=== PATIENT | male | born 1960 | race Caucasian/White ===

== ENCOUNTER 2020-10-30 06:54 | Outpatient (NON) | payer OTHER, SELFPAY ==
[2020-10-30 23:37] LABS: SARS-CoV-2 RNA PCR Positive
== END 2020-10-30 06:55 ==
PROVIDERS: PCP Family Medicine Adolescent Medicine; Visit Provider Family Medicine Adolescent Medicine
DX: U07.1 COVID-19 (principal)
CPT/HCPCS: 87635; C9803; U0003

== ENCOUNTER 2025-11-02 07:22 | Outpatient (CLI) | payer MEDICARE, SELFPAY ==
--- OUTSIDE RECORDS SUMMARY | 2025-11-02 07:26 | XMS_ITS | Encounter Summary ---
Author Organization [facility] Facility Care Team Providers Care Reactor Service Operator Name Role Phone Wilfredo Moreno MD Primary Care Prov ider David Kenney MD Unavailable [phone] Blake Brooks MD PhD Unavailable [phone] Brittany Escobar MD Unavailable [phone] Costa Barba MD Unavailable [phone] Brittany Escobar MD Unavailable [phone] Cody Devi MD Unavailable [phone] Encounter Details Date Type Department Care Team (Latest Contact Info) Description 08/31/2006 Orders Only [facility] CLINCONV Provider, MD Mary Ann [address] [place] [address] Social History Tobacco Use Types Packs/Day Years Used Date Smoking Tobacco: Never Assessed Sex and Gender Information Value Date Recorded Sex Assigned at Not on file Legal Sex Male 9:17 PM BUTTON TACKER Gender Identity Not on file Sexual Orientation Not on file documented as of this encounter Plan of Treatment Not on file documented as of this encounter Procedures Procedure Name Priority Date/Time Associated Diagnosis Comments CARDIOLOGY REPORT 12/10/2016 12: 00 AM BUTTON TACKER documented in this encounter Results * CARDIOLOGY REPORT (12/10/2016 12:00 AM BUTTON TACKER) Anatomical Region Laterality Modality Other Narrative 12/10/2016 12:00 AM BUTTON TACKER Ordered by an unspecified provider. us Historical Provider CV CARDIAC SERVICES MARIANA AGARWAL Final Result documented in this encounter Visit Diagnoses Not on filedocumented in this encounter Care Teams Reactor Service Operator Relationship Specialty Start Date End Date Wilfredo Moreno MD PCP - General 01/06/18 David Kenney MD Medical Oncologist/Proposal Engineer Hematology and Oncology 07/06/18 06/10/21 Blake Brooks MD PhD [facility] [facility] [address] [place], [place] [address] Medical Oncologist/Proposal Engineer Medical Oncology 01/15/21 Brittany Escobar MD [address] [place] [address] 180 [place], [place] [address] Radiation Oncologist Radiation Oncology 07/17/21 Costa Garcia MD 3 [facility] [address] [place], [place] [address] Surgeon Neurosurgery 07/17/21 Brittany Escobar MD [address] [place] [address] 160 [place], [place] [address] Radiation Oncologist Radiation Oncology 07/06/24 Cody Devi MD [facility] [facility] [address] [place], [place] [address] Consulting Physician General Surgery 06/13/25 documented as of this encounter
--- OUTSIDE RECORDS SUMMARY | 2025-11-02 07:26 | XMS_ITS | Encounter Summary ---
Author Organization [facility] Facility Care Team Providers Care Systems Analyst Name Role Phone Wilfredo Moreno MD Primary Care Prov ider David Kenney MD Unavailable [phone] Blake Brooks MD PhD Unavailable [phone] Brittany Escobar MD Unavailable [phone] Costa Barba MD Unavailable [phone] Brittany Escobar MD Unavailable [phone] Cody Devi MD Unavailable [phone] Encounter Details Date Type Department Care Team (Latest Contact Info) Description 02/16/2018 Orders Only [facility]G CLINCONV Provider, MD Mary Ann [address] [place] [address] Social History Tobacco Use Types Packs/Day Years Used Date Smoking Tobacco: Every Day Sex and Gender Information Value Date Recorded Sex Assigned at Not on file Legal 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 us Historical Provider Final Res ult documented in this encounter Visit Diagnoses Not on filedocumented in this encounter Care Teams Systems Analyst Relationship Specialty Start Date End Date Wilfredo Moreno MD PCP - General 01/06/18 David Kenney MD Medical Oncologist/Senior Operations Analyst Hematology and Oncology 07/06/18 06/10/21 Blake Brooks MD PhD [facility]8 [facility] [address] [place], [place] [address] Medical Oncologist/Senior Operations Analyst Medical Oncology 01/15/21 Brittany Escobar MD [address] [place] [address] 180 [place], [place] [address] Radiation Oncologist Radiation Oncology 07/17/21 Costa Garcia MD 3 [facility] [address] [place], [place] [address] Surgeon Neurosurgery 07/17/21 Brittany Escobar MD [facility]8 [facility] 160 [place], [place] [address] Radiation Oncologist Radiation Oncology 07/06/24 Cody Devi MD [facility]4 [facility] 330 [place], [place] [address] Consulting Physician General Surgery 06/13/25 documented as of this encounter
--- OUTSIDE RECORDS SUMMARY | 2025-11-02 07:26 | XMS_ITS | Encounter Summary ---
Author Organization [facility] Facility Care Team Providers Care Bio Medical Technician Name Role Phone Wilfredo Moreno MD Primary Care Prov ider David Kenney MD Unavailable [phone] Blake Brooks MD PhD Unavailable [phone] Brittany Escobar MD Unavailable [phone] Costa Barba MD Unavailable [phone] Brittany Escobar MD Unavailable [phone] Cody Devi MD Unavailable [phone] Encounter Details Date Type Department Care Team (Latest Contact Info) Description 01/10/2009 Orders Only [facility]G CLINCONV Provider, MD Mary Ann [address] [place] [address] Social History Tobacco Use Types Packs/Day Years Used Date Smoking Tobacco: Never Assessed Sex and Gender Information Value Date Recorded Sex Assigned at Not on file Legal Sex Male 9:17 PM ASSISTANT DIRECTOR OF PLANT OPERATIONS Gender Identity Not on file Sexual Orientation Not on file documented as of this encounter Plan of Treatment Not on file documented as of this encounter Procedures Procedure Name Priority Date/Time Associated Diagnosis Comments CARDIOLOGY REPORT 12/10/2016 12: 00 AM ASSISTANT DIRECTOR OF PLANT OPERATIONS documented in this encounter Results * CARDIOLOGY REPORT (12/10/2016 12:00 AM ASSISTANT DIRECTOR OF PLANT OPERATIONS) Anatomical Region Laterality Modality Other Narrative 12/10/2016 12:00 AM ASSISTANT DIRECTOR OF PLANT OPERATIONS Ordered by an unspecified provider. us Historical Provider CV CARDIAC SERVICES MARIANA AGARWAL Final Result documented in this encounter Visit Diagnoses Not on filedocumented in this encounter Care Teams Bio Medical Technician Relationship Specialty Start Date End Date Wilfredo Moreno MD PCP - General 01/06/18 David Kenney MD Medical Oncologist/Hospital Nurse Hematology and Oncology 07/06/18 06/10/21 Blake Brooks MD PhD [facility]8 [facility] [address] [place], [place] [address] Medical Oncologist/Hospital Nurse Medical Oncology 01/15/21 Brittany Escobar MD [address] [place] [address] 180 [place], [place] [address] Radiation Oncologist Radiation Oncology 07/17/21 Costa Garcia MD 3 [facility] 5000 [place], [place] [address] Surgeon Neurosurgery 07/17/21 Brittany Escobar MD [address] [place] [address] 160 [place], [place] [address] Radiation Oncologist Radiation Oncology 07/06/24 Cody Devi MD [facility]4 [facility] 330 [place], [place] [address] Consulting Physician General Surgery 06/13/25 documented as of this encounter
--- OUTSIDE RECORDS SUMMARY | 2025-11-02 07:26 | XMS_ITS | Encounter Summary ---
Author Organization [facility] Facility Care Team Providers Care Yoghurt Maker Name Role Phone Wilfredo Moreno MD Primary Care Prov ider David Kenney MD Unavailable [phone] Blake Brooks MD PhD Unavailable [phone] Brittany Escobar MD Unavailable [phone] Costa Barba MD Unavailable [phone] Brittany Escobar MD Unavailable [phone] Cody Devi MD Unavailable [phone] Encounter Details Date Type Department Care Team (Latest Contact Info) Description 06/12/2015 Orders Only [facility]G CLINCONV Provider, MD Mary Ann [address] [place] [address] Social History Tobacco Use Types Packs/Day Years Used Date Smoking Tobacco: Never Assessed Sex and Gender Information Value Date Recorded Sex Assigned at Not on file Legal Sex Male 9:17 PM REAL ESTATE LEGAL SECRETARY Gender Identity Not on file Sexual Orientation Not on file documented as of this encounter Plan of Treatment Not on file documented as of this encounter Procedures Procedure Name Priority Date/Time Associated Diagnosis Comments CARDIOLOGY REPORT 12/10/2016 12: 00 AM REAL ESTATE LEGAL SECRETARY documented in this encounter Results * CARDIOLOGY REPORT (12/10/2016 12:00 AM REAL ESTATE LEGAL SECRETARY) Anatomical Region Laterality Modality Other Narrative 12/10/2016 12:00 AM REAL ESTATE LEGAL SECRETARY Ordered by an unspecified provider. us Historical Provider CV CARDIAC SERVICES MARIANA AGARWAL Final Result documented in this encounter Visit Diagnoses Not on filedocumented in this encounter Care Teams Yoghurt Maker Relationship Specialty Start Date End Date Wilfredo Moreno MD PCP - General 01/06/18 David Kenney MD Medical Oncologist/Visitor Services Technician Hematology and Oncology 07/06/18 06/10/21 Blake Brooks MD PhD [facility] [place], [place] [address] Medical Oncologist/Visitor Services Technician Medical Oncology 01/15/21 Brittany Escobar MD [address] [place] [address] 180 [place], [place] [address] Radiation Oncologist Radiation Oncology 07/17/21 Costa Garcia MD 3 [facility] [address] [place], [place] [address] Surgeon Neurosurgery 07/17/21 Brittany Escobar MD [address] [place] [address] 160 [place], [place] [address] Radiation Oncologist Radiation Oncology 07/06/24 Cody Devi MD [facility] [place], [place] [address] Consulting Physician General Surgery 06/13/25 documented as of this encounter
--- OUTSIDE RECORDS SUMMARY | 2025-11-02 07:26 | XMS_ITS | Clinical Summary ---
Author Organization [facility] [employer] Address [address] [place] [address] Care Team Providers Care Life Consultant Name Role Phone Wilfredo Moreno MD Primary Care Provider + Elizabet Herr RN Unavailable [phone] Source Comments [facility],non-owned Affiliates and Associated Physician Practices is amultiple site organization consisting of ambulatory clinics and hospital sitesin [place], [place], [place] and [place]. This disclosure is being madepursuant to the Care Everywhere program and may not contain all information available regarding this patient. Last updated 18.[facility] [employer] Allergies No known active allergies Medications * Be aware that medications may not be up to date on this document. Alwaysverify current medications with the patient. BABY ASPIRIN PO Take 81 mg by mouth once daily Active fenofibrate (LOFIBRA) 160 MG tablet Take 160 mg by mouth once daily Take with largest meal of the day. Active metFORMIN (GLUCOPHAGE) 500 MG tablet Take 500 mg by mouth once daily Active levETIRAcetam (KEPPRA) 500 MG tablet Take 1 tablet by mouth 2 times daily 60 tablet 02/13/2018 Active Active Problems Problem Noted Date Diagnosed Date Uncontrolled diabetes mellitus type 2 without co mplications 02/13/2018 Dizziness 02/11/2018 Brain edema 02/11/2018 Metastasis to brain 02/11/2018 Mass of upper lobe of right lung 02/11/2018 Family History Medical History Relation Name Comments Cancer - Renal Brother Cancer - Prostate Father Cancer - Breast Mother Diabetes - Type 2 Mother Alzheimer's Disease Paternal Grandfather Alzheimer's Disease Paternal Grandmother CVA Sister Lupus Sister Relation Name Status Comments Brother Father Mother Paternal Grandfather Paternal Grandmother Sister Social History Tobacco Use Types Packs/Day Years Used Date Smoking Tobacco: Every Day Cigarettes 1.5 40 Smokeless Tobacco: Never Tobacco Cessation:Ready to Q uit: No; Counseling Given: No Alcohol Use Standard Drinks/Week Comments No 0 (1 standard drink = 0.6 oz pur e alcohol) Sex and Gender Information Value Date Recorded Sex Assigned at Not on file Legal Sex Male 6:32 PM CDT Gender Identity Not on file Sexual Orientation Not on file Last Filed Vital Signs Vital Sign Reading Time Taken Comments Blood Pressure 114/68 02/13/2018 11:34 AM CDT Pulse 74 02/13/2018 11:34 AM CDT Temperature 36.6 C (97.9 F) 02/13/2018 11:34 AM CDT Respiratory Rate 16 02/13/2018 11:34 AM CDT Oxygen Saturation 95% 02/13/2018 11:34 AM CDT Inhaled Oxygen Concentration - - Weight 87.1 kg (192 lb) 02/12/2018 10:29 AM CDT Height 180.3 cm (5' 11) 02/12/2018 10:29 AM CDT Body Mass Index 26.78 02/12/2018 10:29 AM CDT Plan of Treatment Health Maintenance Due Date Last Done Comments COLOGUARD (AGES 45-75) - COL ON CA SCREENING 1960 COLON MONITORING 1960 COLONOSCOPY - COLON CA SCREENING 1960 CT COLONOGRAPHY - COLON CA SCREENING 1960 Colorectal Cancer Screening 1960 FIT - COLON CA SCREENING 1960 FLEX SIG - COLON CA SCREENING 1960 LIPID TESTING 1960 HIV SCREENING 1975 HEPATITIS C SCREENING 01/22/1978 DTAP/TDAP/TD VACCINES (1 - Tdap) 1979 LUNG CANCER SCREENING 2010 PNEUMOCOCCAL VACCINE 50+ (1 of 1 - PCV) 2010 ZOSTER VACCINE (1 of 2) 2010 DEPRESSION SCREENING 11/30/2024 AAA SCREENING 2025 COVID-19 VACCINE ( - 2024-2 6 season) 2025 INFLUENZA VACCINE (#1) 2025 Respiratory Syncytial Virus (RSV) Vaccine Pt: or over 60 yrs (1 - 1-dose 75+ series) 2035 HEPATITIS B VACCINE Aged Out No longe r eligible based on patient's age to complete this topic HIB VACCINE Aged Out No longer eligi ble based on patient's age to complete this topic HPV VACCINE Aged Out No longer eligi ble based on patient's age to complete this topic MENINGOCOCCAL (Group B) VACC INE SHARED DECISION-MAKING Aged Out No longer eligibl e based on patient's age to complete this topic MENINGOCOCCAL GROUPS A/C/Y/W VACCINE Aged Out No longer eligible b ased on patient's age to complete [place] [id number] [place] [id number] [employer] Advance Directives * Full Code (Latest Code Status on File) Date Activated Date Inactivated Comments 02/11/2018 10:45 PM 02/13/2018 3:55 PM Care Teams Life Consultant Relationship Specialty Start Date End Date Wilfredo Moreno MD [address] [address] PCP - General Family Medicine 02/11/18 Elizabet Herr, RN Nurse Informaticist 02/12/18
--- OUTSIDE RECORDS SUMMARY | 2025-11-02 07:26 | XMS_ITS | Encounter Summary ---
Author Organization [facility] Facility Care Team Providers Care Shotweld Operator Name Role Phone Wilfredo Moreno MD Primary Care Prov ider David Kenney MD Unavailable [phone] Blake Brooks MD PhD Unavailable [phone] Brittany Escobar MD Unavailable [phone] Costa Barba MD Unavailable [phone] Brittany Escobar MD Unavailable [phone] Cody Devi MD Unavailable [phone] Encounter Details Date Type Department Care Team (Latest Contact Info) Description 09/14/2014 Orders Only MMG CLINCONV Provider, MD Mary Ann [address] [place] [address] Social History Tobacco Use Types Packs/Day Years Used Date Smoking Tobacco: Never Assessed Sex and Gender Information Value Date Recorded Sex Assigned at Not on file Legal Sex Male 9:17 PM BULK RECEIVER Gender Identity Not on file Sexual Orientation Not on file documented as of this encounter Plan of Treatment Not on file documented as of this encounter Procedures Procedure Name Priority Date/Time Associated Diagnosis Comments CARDIOLOGY REPORT 12/10/2016 12: 00 AM BULK RECEIVER documented in this encounter Results * CARDIOLOGY REPORT (12/10/2016 12:00 AM BULK RECEIVER) Anatomical Region Laterality Modality Other Narrative 12/10/2016 12:00 AM BULK RECEIVER Ordered by an unspecified provider. us Historical Provider CV CARDIAC SERVICES MARIANA AGARWAL Final Result documented in this encounter Visit Diagnoses Not on filedocumented in this encounter Care Teams Shotweld Operator Relationship Specialty Start Date End Date Wilfredo Moreno MD PCP - General 01/06/18 David Kenney MD Medical Oncologist/Bevel Polisher Hematology and Oncology 07/06/18 06/10/21 Blake Brooks MD PhD [facility]8 [facility] 180 [place], [place] [address] Medical Oncologist/Bevel Polisher Medical Oncology 01/15/21 Brittany Escobar MD [address] [place] [address] 180 [place], [place] [address] Radiation Oncologist Radiation Oncology 07/17/21 Costa Garcia MD 3 [facility] [address] [place], [place] [address] Surgeon Neurosurgery 07/17/21 Brittany Escobar MD [address] [place] [address] 160 [place], [place] [address] Radiation Oncologist Radiation Oncology 07/06/24 Cody Devi MD [facility]4 [facility] 330 [place], [place] [address] Consulting Physician General Surgery 06/13/25 documented as of this encounter
--- OUTSIDE RECORDS SUMMARY | 2025-11-02 07:26 | XMS_ITS | Encounter Summary ---
Author Organization [facility] Facility Care Team Providers Care Benzene Washer Operator Name Role Phone Wilfredo Moreno MD Primary Care Prov ider David Kenney MD Unavailable [phone] Blake Brooks MD PhD Unavailable [phone] Brittany Escobar MD Unavailable [phone] Costa Barba MD Unavailable [phone] Brittany Escobar MD Unavailable [phone] Cody Devi MD Unavailable [phone] Encounter Details Date Type Department Care Team (Latest Contact Info) Description 06/08/2015 Orders Only MMG CLINCONV Provider, MD Mary Ann [address] [place] [address] Social History Tobacco Use Types Packs/Day Years Used Date Smoking Tobacco: Never Assessed Sex and Gender Information Value Date Recorded Sex Assigned at Not on file Legal Sex Male 9:17 PM ACTIVITIES DIRECTOR Gender Identity Not on file Sexual Orientation Not on file documented as of this encounter Plan of Treatment Not on file documented as of this encounter Procedures Procedure Name Priority Date/Time Associated Diagnosis Comments SCAN - LABS 12/10/2016 12:00 AM ACTIVITIES DIRECTOR documented in this encounter Results * SCAN - LABS (12/10/2016 12:00 AM ACTIVITIES DIRECTOR) Narrative 12/10/2016 12:00 AM ACTIVITIES DIRECTOR Ordered by an unspecified provider. us Historical Provider Final Res ult documented in this encounter Visit Diagnoses Not on filedocumented in this encounter Care Teams Benzene Washer Operator Relationship Specialty Start Date End Date Wilfredo Moreno MD PCP - General 01/06/18 David Kenney MD Medical Oncologist/Afternoon Babysitter Hematology and Oncology 07/06/18 06/10/21 Blake Brooks MD PhD [facility]8 [facility] 180 [place], [place] [address] Medical Oncologist/Afternoon Babysitter Medical Oncology 01/15/21 Brittany Escobar MD [address] [place] [address] 180 [place], [place] [address] Radiation Oncologist Radiation Oncology 07/17/21 Costa Garcia MD 3 [facility] 5000 [place], [place] [address] Surgeon Neurosurgery 07/17/21 Brittany Escobar MD [facility]8 [facility] 160 [place], [place] [address] Radiation Oncologist Radiation Oncology 07/06/24 Cody Devi MD [facility]4 [facility] 330 [place], [place] [address] Consulting Physician General Surgery 06/13/25 documented as of this encounter
--- OUTSIDE RECORDS SUMMARY | 2025-11-02 07:27 | XMS_ITS | Clinical Summary ---
Author Organization [facility] Address [address] [place] [address] Phone Care Team Providers Care Watch Mechanic Name Role Phone Wilfredo Moreno MD Primary Care Prov ider Blake Brooks MD PhD Unavailable [phone] Costa Barba MD Unavailable [phone] Brittany Escobar MD Unavailable [phone] Cody Devi MD Unavailable [phone] Allergies No known active allergies Medications fenofibrate (TRIGLIDE) 160 mg tablet 12/14/2017Fenofibrate, po solid 160 mg TabletPOdailyCurrent Medication 12/14/19 18 Active metFORMIN (GLUCOPHAGE) 500 mg tablet 2 (two) times a day 0 15 Active calcium carbonate/vit cutler D3 (CALCIUM 500 + D, D3, ORAL) Take by mouth Active Trulicity 0.75 mg/0.5 mL pen injector INJECT 1 SYRINGE SUBCUTANEOUSLY ONCE A WEEK 04/05/20 24 Active LORazepam (ATIVAN) 1 mg tablet Take by mouth 2 (two) times a day as needed 02/28/20 24 Active pioglitazone (ACTOS) 15 mg tablet Take 1 tablet (15 mg total) by mouth daily 10/28/20 24 Active escitalopram (LEXAPRO) 10 mg tablet Take 1 tablet (10 mg total) by mouth daily as needed Active Active Problems Problem Noted Date Diagnosed Date Personal history of radiation therapy 07/17/2021 Encounter for management of implanted device 09/2019 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 12/08/2018 Hypothyroidism due to medication 09/06/2018 At risk for side effect of medication 09/06/2018 Adenocarcinoma of lung 05/24/2018 Non-small cell lung cancer (NSCLC) 05/10/2018 Cancer Staging:Clinical stage from 02/23/2018: cT3, cN2, cM1 - Signed by David Kenney MD on 05/10/2018 Uncontrolled diabetes mellitus type 2 without co mplications 02/13/2018 Metastasis to brain 02/11/2018 Mass of upper lobe of right lung 02/11/2018 Carotid artery disease 12/10/2016 Diabetes 12/10/2016 History of supraventricular tachycardia 12/10/19 17 Encounter for surgical after care following surgery on the circulatory system 02/22/2016 Aortoiliac occlusive disease 01/01/2016 Peripheral arterial occlusive disease 12/17/2015 Atherosclerotic occlusive disease 08/21/2015 Peripheral vascular disease 08/17/2015 Tobacco use disorder 08/12/2015 Polycythemia 09/19/2014 Immunizations Immunization Administration Dates Next Due Influenza, Quadrivalent, Delia l Culture-based MDCK, Preservative Free, Antibiotic Free, Intramuscular 09/16/2022,09/24/2021,09/25/2020,09/05,10/05/2018 Pfizer SARS-CoV-2 Monovalent Vaccination (12+ Yrs) PURPLE 12/02/2021,02/14/2021,01/24/2021 Surgical History Surgery Date Site/Laterality Comments CARDIAC SURGERY COLONOSCOPY LUNG BIOPSY TONSILLECTOMY AND ADENOIDECTOMY CATARACT EXTRACTION AORTA - BILATERAL FEMORAL ARTERY BYPASS GRAFT 01/23/2016 transabdominal aortobifemoral bypass grafting (18 x 8) Medical History Medical History Date Comments Lung cancer (HCC) Polycythemia Diabetes mellitus Hypothyroidism Atherosclerotic occlusive disease 08/21/2015 Peripheral vascular disease 08/17/2015 Aortoiliac occlusive disease (HCC) 01/01/2016 Metastasis to brain 02/11/2018 Mass of upper lobe of right lung 02/11/2018 Non-small cell lung cancer (NSCLC) (HCC) 018 Tobacco use disorder 08/12/2015 Carotid artery disease 12/10/2016 History of supraventricular tachycardia 12/10/19 17 Personal history of radiation therapy 07/17/2021 Family History Medical History Relation Name Comments Cancer Brother Family history of malignant neoplasm - (Added by TW Conv) Cancer Father Family history of malignant neoplasm - (Added by TW Conv) Cancer Mother Family history of malignant neoplasm - (Added by TW Conv) Skin cancer Sister Stroke Sister Relation Name Status Comments Brother (Age 54) 54 when di agnosed Father (Age 65) unkown age of diagnosis Mother (Age 71) 62 when di agnosed Sister Social History Tobacco Use Types Packs/Day Years Used Date Smoking Tobacco: Former Cigarettes 1.5 45 0 02/11/1973 - 02/11/2018 Smokeless Tobacco: Never Tobacco Cessation:Counseling Given: Not Answered Alcohol Use Standard Drinks/Week Comments Not Currently 0 (1 standard drink = 0.6 oz pur e alcohol) AUDIT-C Answer Date Recorded Q1: How often do you have a drink containing alcohol? Never 06/05/2025 Q2: How many drinks containi ng alcohol do you have on a typical day when you are drinking? Patient does not drink Q3: How often do you have si x or more drinks on one occasion? Never 06/05/2025 Personal Safety Answer Date Recorded Have you ever been in or are you currently in a harmful physical or emotional relationship or is someone making you feel afraid or unsafe? Denies 06/13/2025 Sex and Gender Information Value Date Recorded Sex Assigned at Not on file Legal Sex Male 9:17 PM EAR[employer] Gender Identity Not on file Sexual Orientation Not on file Last Filed Vital Signs Vital Sign Reading Time Taken Comments Blood Pressure 134/72 08/02/2025 12:45 PM CDT Pulse 101 08/02/2025 12:45 PM CDT Temperature 36.7 C (98 F) 06/13/2025 2:00 PM CDT Respiratory Rate 18 06/13/2025 2:30 PM CDT Oxygen Saturation 98% 08/02/2025 12:45 PM CDT Inhaled Oxygen Concentration - - Weight 86.6 kg (191 lb) 08/02/2025 12:45 PM CDT Height 180.3 cm (5' 11) 06/13/2025 8:40 AM CDT Body Mass Index 26.64 06/13/2025 8:40 AM CDT Plan of Treatment Health Maintenance Due Date Last Done Comments Colon Cancer Screening-Colonoscopy 1960 Depression Screening 1960 Dilated Eye Exam 1960 Foot Exam 1960 Hepatitis B Screening 1978 Zoster Vaccine (1 of 2) 12/15/2020 10/20/2020, 10/10 Pneumococcal vaccine 65+ (2 of 2 - PPSV23, PCV20, or PCV21) 12/18/2020 10/23/2020, 10/10/2020 Well Visit 65+ 2025 Covid-19 Vaccine (5 - 2024-2 6 season) 2025 11/18/2022, 12/02/2021, 02/14/2021, Additional history exists Influenza Vaccine (#1) 2025 2, 09/24/2021, 09/25/2020, Additional history exists Albumin Creatinine Ratio, Urine 08/02/2025 Lipid Panel 08/02/2025 08/02/2024, 12/31, 01/23/2016 Hemoglobin A1C 12/09/2025 06/08/2025, 09/0 01/2024, 02/11/2022, Additional history exists eGFR 06/08/2026 06/08/2025, 09/0 01/2024, 02/16/2024, Additional history exists Fall Risk Assessment 06/13/2026 06/13/2025 Prostate Cancer Screening-PSA 08/02/2026 08/02/2024, 02/11/2022 DTaP/Tdap/Td Vaccine (2 - Tdap) 10/10/2030 0 Hepatitis C Screening Completed 01/23/2016 Abdominal Aortic Aneurysm (A AA) Screen Completed 04/13/2025, 10/25/2024, 07/28/2024, Additional history exists Medical Devices Implanted Type Area Emergency Services Dispatcher Device Identifier Shelf Expiration Date Model / Serial / Lot Pac Left: Chest Procedures Procedure Name Priority Date/Time Associated Diagnosis Comments EGFR Routine 06/08/2025 8:36 AM CDT Pre-op testing HEMOGLOBIN A1C Routine 06/08/2025 8:36 AM CDT Preop testing Type 2 diabetes mellitus with other specified complication, unspecified whether fpc insulin use (HCC) CT CHEST ABDOMEN PELVIS W CONTRAST Schedule GAMA, Read GAMA (Appt Today, Awaiting Results) 04/13/2025 6:41 AM CDT Non-small cell cancer of right lung (HCC) Metastasis to brain (HCC) LIPID PANEL Routine 08/02/2024 12:52 PM CDT ALBUMIN CREATININE RATIO, URINE Routine 08/02/2024 12:52 PM CDT PSA SCREEN Routine 08/02/2024 12:52 PM CDT SERUM HEPATITIS C AB Routine 01/23/2016 8:43 AM EAR[employer]OVER from Last 3 Months or Most Recently Relevant to Health Maintenance Results * eGFR (06/08/2025 8:36 AM CDT) eGFR >90 >=60 mL/min/1. 73 m2 Comment: Interpretive Data Reference Interval Normal >/= 90 mL/min/1.73m2 Mildly decreased* 60 - 89 mL/min/1.73m2 Mildly to moderately decreased 45 - 59 mL/min/1.73m2 Moderately to severely decreased 30 - 44 mL/min/1.73m2 Severely decreased 15 - 29 mL/min/1.73m2 Kidney Failure < 15 mL/min/1.73m2 *Relative to young adult level Estimated glomerular filtration rate is determined by the 2020 CKD-EPI equation recommended by the National Kidney Foundation (A Unifying Approach to GFR Estimation: Recommendations of the NKF-ASK Task Force on Reassessing the Inclusion of Race in Diagnosing Kidney Disease, JASN 2020). The CKD-EPI equation should not be used for patients with unstable renal function and has not been validated in children and those over 70. Current interpretive data was last reviewed 2021. Testing performed by: [facility], [address] [place] [address], [place]., [address] Blood 06/08/2025 8:36 AM CDT 06/08/2025 8:46 AM CDT Mode Batista MD LAB BLOOD ORDERABL ES Final Result Performing Organization Address [facility] de Phone Number ZAYRA [facility] [place] [address] * (ABNORMAL) Hemoglobin A1c (06/08/2025 8:36 AM CDT) Hgb A1C 7.7(H) 4.0 - 5.6 % Comment:Testing performed by : [facility], [address] [place] [address]., [id number] Estimated Average Glucose 174 mg/dL ZAYRA Comment: The ADA recommends reporting an estimated Average Glucose (eAG) with all Hemoglobin A1c results using the equation derived from a study of 507 normal and diabetic adults. Minority populations were underrepresented and children were not included. (Diabetes Care 31:5390-3650, 2008). The eAG is not equivalent to a fasting glucose. Testing performed by: [facility], [address] [place] [address]., [id number] Blood 06/08/2025 8:36 AM CDT 06/08/2025 8:46 AM CDT Narrative ZAYRA - 06/08/2025 9:09 AM CDT PRE SURGICAL TESTING ONLY--06/13/2025-REMOVAL PORT A CATH: -Surgeons and Role: * Cody Devi MD - Primary- Mode Batista MD LAB BLOOD ORDERABL ES Final Result Performing Organization Address [facility] Co de Phone Number ZAYRA [address] [facility] [place] [address] * CT Chest Abdomen Pelvis W Contrast (04/13/2025 6:41 AM CDT) Anatomical Region Laterality Modality Body N/A Computed Tomogra phy 04/18/2025 8:54 AM CDT Narrative 04/18/2025 9:04 AM CDT EXAM DESCRIPTION: CT CHEST ABDOMEN PELVIS W CONTRAST REASON FOR STUDY: restaging Restaging, Non-small cell cancer of right lung, Metastasis to brain. Diagnosed in January 2018. No complaints. 6 month f/u TECHNIQUE: CT scan of the chest, abdomen, and pelvis performed with intravenous and without oral contrast using helical scanning technique with dynamic intravenous contrast injection. Reconstructed coronal and sagittal MPR images reviewed. All images stored on PACS. Automated exposure control was used as a dose optimization technique for this examination. CONTRAST TYPE/DOSE: 100mL of IOVERSOL 350 MG IODINE/ML INTRAVENOUS SYRINGE injected via intravenous COMPARISON: 10/25/2024 FINDINGS: CHEST LUNGS: There is no definite evidence of a pneumothorax. The central airways are grossly patent. There is scattered minimal to mild subsegmental atelectasis and scarring. There is no definite evidence of a focal consolidation or pleural effusion. There is a calcified granuloma in the left upper lobe. There is redemonstration of extensive patchy consolidative airspace opacities in the posteromedial right upper lobe with extension to the right hilum with associated bronchiectasis, which is overall grossly similar to multiple prior studies dating back to 11/13/2020, and compatible with posttreatment/postradiation changes. There is a grossly stable 0.7 cm subpleural ground-glass pulmonary nodule in the anterior right middle lobe, which is grossly unchanged since 04/02/2021, therefore likely benign (axial image 38). There is a stable subpleural 0.5 cm pulmonary nodule in the anterior right middle lobe, which is grossly unchanged since 04/02/2021, therefore likely benign (axial image 43). MEDIASTINUM/CHENTE: The heart size is stable. There is no definite evidence of pericardial effusion. There are atherosclerotic changes of the coronary vessels and aorta. Postsurgical changes of aortobifemoral bypass are noted, which is similar to the prior study and appears grossly patent. There is no definite evidence of mediastinal, hilar, or axillary lymphadenopathy. There are scattered subcentimeter mediastinal lymph nodes noted with largest measuring 0.6 cm in the subcarinal region (axial image 43). Scattered calcified mediastinal and left hilar lymph nodes are noted. CHEST WALL: There is mild bilateral gynecomastia. HARDWARE/LINES/TUBES: None. ABDOMEN/PELVIS LIVER: There is mild diffuse hepatic steatosis without definite evidence of a focal hepatic lesion. The hepatic and portal veins are grossly patent. GALLBLADDER: There is cholelithiasis. BILE DUCTS: No intrahepatic or extrahepatic ductal dilatation. SPLEEN: The spleen is grossly stable in size and unremarkable. There are calcified granulomas noted in the spleen. PANCREAS: The pancreas appears grossly stable without definite evidence of pancreatic ductal dilatation, peripancreatic inflammatory changes, or peripancreatic fluid collection. ADRENALS: The bilateral adrenal glands are grossly stable and unremarkable. KIDNEYS/URINARY TRACT: The bilateral kidneys enhance symmetrically. There is no definite evidence of a focal renal lesion. There is no definite evidence of hydronephrosis or hydroureter. There is circumferential mucosal thickening of the urinary bladder. The prostate gland measures 5.1 cm. GI: There is a ventral supraumbilical abdominal wall hernia with the abdominal wall defect measuring 5.6 cm containing a nonobstructed loop of small bowel. There is no definite evidence of a bowel obstruction. There is a small hiatal hernia. There is mild mucosal thickening of the mid to distal small bowel. The appendix is visualized without definite evidence of pericecal or periappendiceal inflammatory changes to suggest appendicitis. There are scattered colonic diverticula without definite evidence of diverticulitis. There is a small fat containing periumbilical hernia. There is no definite evidence of free air or fluid in the abdomen and pelvis. There is no definite evidence of lymphadenopathy in the abdomen and pelvis. MUSCULOSKELETAL: There is mild osteopenia. There is a minimal to mild levoscoliotic curvature of the spine with degenerative changes. There are degenerative changes bilateral sacroiliac joints and bilateral hips. OTHER: No significant abnormality. IMPRESSION: Redemonstration of extensive patchy consolidative airspace opacities in the posteromedial right upper lobe with extension to the right hilum with associated bronchiectasis, which is overall grossly similar to multiple prior studies dating back to 11/13/2020, and compatible with posttreatment/postradiation changes. No definite evidence of local recurrence or metastatic disease in the chest, abdomen, and pelvis. Scattered minimal to mild subsegmental atelectasis and scarring. No definite evidence of a focal consolidation. Large supraumbilical ventral abdominal wall hernia containing a nonobstructed loop of small bowel. No definite evidence of bowel obstruction. Mild mucosal thickening of the mid to distal small bowel, which may be related to underdistention versus mild enteritis of infectious or inflammatory etiology. Circumferential mucosal thickening of the urinary bladder, which may be related to underdistention, chronic urinary bladder outlet obstruction secondary to enlarged prostate gland, or cystitis. Clinical correlation with urinary analysis is recommended as clinically indicated. Scattered colonic diverticula without definite evidence of diverticulitis. Mildly enlarged prostate gland measuring 5.1 cm. Clinical correlation with physical exam findings and PSA values is recommended as clinically indicated. Mild diffuse hepatic steatosis. Cholelithiasis. Normal appendix. THIS IS AN ELECTRONICALLY VERIFIED FINAL REPORT 04/18/2025 9:04 AM - Electronically signed by Sydni Rivas D.O. PS: PS Report ID: [id number] Reading Location: [id number] Procedure Note Sydni Rivas, DO - 04/18/2025 EXAM DESCRIPTION: CT CHEST ABDOMEN PELVIS W CONTRAST REASON FOR STUDY: restaging Restaging, Non-small cell cancer of right lung, Metastasis to brain. Diagnosed in January 2018. No complaints. 6 month f/u TECHNIQUE: CT scan of the chest, abdomen, and pelvis performed with intravenous and without oral contrast using helical scanning techniquewith dynamic intravenous contrast injection. Reconstructed coronal and sagittalMPR images reviewed. All images stored on PACS. Automated exposure control was used as a dose optimization technique for this examination. CONTRAST TYPE/DOSE: 100mL of IOVERSOL 350 MG IODINE/ML INTRAVENOUS SYRINGE injected via intravenous COMPARISON: 10/25/2024 FINDINGS: CHEST LUNGS: There is no definite evidence of a pneumothorax. The centralairways are grossly patent. There is scattered minimal to mild subsegmental atelectasis and scarring. There is no definite evidence of a focal consolidation or pleural effusion. There is a calcified granuloma in theleft upper lobe. There is redemonstration of extensive patchy consolidative airspaceopacities in the posteromedial right upper lobe with extension to the right hilumwith associated bronchiectasis, which is overall grossly similar to multipleprior studies dating back to 11/13/2020, and compatible with posttreatment/postradiation changes. There is a grossly stable 0.7 cm subpleural ground-glass pulmonary nodulein the anterior right middle lobe, which is grossly unchanged since04/02/2021, therefore likely benign (axial image 38). There is a stable subpleural0.5 cm pulmonary nodule in the anterior right middle lobe, which is grosslyunchanged since 04/02/2021, therefore likely benign (axial image 43). MEDIASTINUM/CHENTE: The heart size is stable. There is no definiteevidence of pericardial effusion. There are atherosclerotic changes of thecoronary vessels and aorta. Postsurgical changes of aortobifemoral bypass arenoted, which is similar to the prior study and appears grossly patent. There is no definite evidence of mediastinal, hilar, or axillary lymphadenopathy. There are scattered subcentimeter mediastinal lymphnodes noted with largest measuring 0.6 cm in the subcarinal region (axial image43). Scattered calcified mediastinal and left hilar lymph nodes are noted. CHEST WALL: There is mild bilateral gynecomastia. HARDWARE/LINES/TUBES: None. ABDOMEN/PELVIS LIVER: There is mild diffuse hepatic steatosis without definite evidenceof a focal hepatic lesion. The hepatic and portal veins are grossly patent. GALLBLADDER: There is cholelithiasis. BILE DUCTS: No intrahepatic or extrahepatic ductal dilatation. SPLEEN: The spleen is grossly stable in size and unremarkable. Thereare calcified granulomas noted in the spleen. PANCREAS: The pancreas appears grossly stable without definite evidenceof pancreatic ductal dilatation, peripancreatic inflammatory changes, or peripancreatic fluid collection. ADRENALS: The bilateral adrenal glands are grossly stable andunremarkable. KIDNEYS/URINARY TRACT: The bilateral kidneys enhance symmetrically.There is no definite evidence of a focal renal lesion. There is no definite evidence of hydronephrosis or hydroureter. There is circumferentialmucosal thickening of the urinary bladder. The prostate gland measures 5.1 cm. GI: There is a ventral supraumbilical abdominal wall hernia with the abdominal wall defect measuring 5.6 cm containing a nonobstructed loop of small bowel. There is no definite evidence of a bowel obstruction. Thereis a small hiatal hernia. There is mild mucosal thickening of the mid todistal small bowel. The appendix is visualized without definite evidence of pericecal or periappendiceal inflammatory changes to suggest appendicitis. There are scattered colonic diverticula without definite evidence of diverticulitis. There is a small fat containing periumbilical hernia.There is no definite evidence of free air or fluid in the abdomen and pelvis.There is no definite evidence of lymphadenopathy in the abdomen and pelvis. MUSCULOSKELETAL: There is mild osteopenia. There is a minimal to mild levoscoliotic curvature of the spine with degenerative changes. There are degenerative changes bilateral sacroiliac joints and bilateral hips. OTHER: No significant abnormality. IMPRESSION: Redemonstration of extensive patchy consolidative airspace opacities inthe posteromedial right upper lobe with extension to the right hilum with associated bronchiectasis, which is overall grossly similar to multipleprior studies dating back to 11/13/2020, and compatible with posttreatment/postradiation changes. No definite evidence of localrecurrence or metastatic disease in the chest, abdomen, and pelvis. Scattered minimal to mild subsegmental atelectasis and scarring. Nodefinite evidence of a focal consolidation. Large supraumbilical ventral abdominal wall hernia containing anonobstructed loop of small bowel. No definite evidence of bowel obstruction. Mild mucosal thickening of the mid to distal small bowel, which may be related to underdistention versus mild enteritis of infectious orinflammatory etiology. Circumferential mucosal thickening of the urinary bladder, which may be related to underdistention, chronic urinary bladder outlet obstruction secondary to enlarged prostate gland, or cystitis. Clinical correlationwith urinary analysis is recommended as clinically indicated. Scattered colonic diverticula without definite evidence ofdiverticulitis. Mildly enlarged prostate gland measuring 5.1 cm. Clinical correlationwith physical exam findings and PSA values is recommended as clinicallyindicated. Mild diffuse hepatic steatosis. Cholelithiasis. Normal appendix. THIS IS AN ELECTRONICALLY VERIFIED FINAL REPORT 04/18/2025 9:04 AM - Electronically signed by Sydni Rivas D.O. PS: PS Report ID: [id number] Reading Location: [place] [address] us Blake Brooks MD PhD IMG CT PROCEDURES Fin al Result * PSA screen (08/02/2024 12:52 PM CDT) PSA-Total 0.79 <=5.40 ng/mL Comment: Interpretive Data AGE SEX REFERENCE INTERVAL 0 minutes-150 years Female None 0 minutes-49 years Male None 50-59 years Male 0-3.90 60-69 years Male 0-5.40 70-79 years Male 0-6.20 80-150 years Male 0-6.20 The Sang PSA Total assay procedure was used. Results from different manufacturers or methods may not be comparable. Serial testing should be performed using the same method. Current interpretive data last revised 22. Testing performed by: [address] [address] Blood 08/02/2024 12:5 2 PM CDT 08/02/2024 1:46 PM CDT Wilfredo Moreno MD LAB BLOOD ORDERABL ES Final Result Performing Organization Address City/[facility] Co de Phone Number ZAYRA [facility]5 [facility] [address] [place], [place] [id number] * Albumin Creatinine Ratio, Urine (08/02/2024 12:52 PM CDT) Albumin Ur <12.0 mg/L Comment: Interpretive Data No reference range established. Current interpretive data was last revised 2019. Testing performed by: [address] [address] Creatinine Ur 90.0 mg/dL ZAYRA Comment: Interpretive Data No reference range established. Current interpretive data was last revised 2019. Testing performed by: [address] [address] Albumin Creatinine Ratio, Ur <13 1 - 29 mg/g ZAYRA Comment:Testing performed by : [address] [address] Urine 08/02/2024 12:5 2 PM CDT 08/02/2024 1:46 PM CDT Wilfredo Moreno MD LAB URINE ORDERABL ES Final Result Performing Organization Address City/[facility] Co de Phone Number ZAYRA [address] [place] [address] * (ABNORMAL) Lipid panel (08/02/2024 12:52 PM CDT) Cholesterol 137 30 - 199 mg/dL Comment: Interpretive Data Ages < or = 19 years Acceptable: <170 mg/dL Borderline high: 170-199 mg/dL High: >or= 200 mg/dL Ages > or = 20 years Desirable: <200 mg/dL Borderline high: 200-239 mg/dL High: >or= 240 mg/dL Literature References: 1. Expert Panel on Integrated Guidelines for Cardiovascular Health and Risk Reduction in Children and Adolescents. Pediatrics 2011;128:S213 2. NCEP Expert Panel. Circulation 2004;110:227 Current Interpretive Data was last revised on 2018. Testing performed by: [address] [address] Triglycerides 232(H) <=149 mg/dL ZAYRA Comment: Interpretive Data Ages < or = 9 years Acceptable: <75 mg/dL Borderline high: 75-99 mg/dL High: >or= 100 mg/dL Ages 10 to 20 years Acceptable: <90 mg/dL Borderline high: 90-129 mg/dL High: >or= 130 mg/dL Ages > or = 20 years Desirable: <150 mg/dL Borderline high: 150-199 mg/dL High: 200-499 mg/dL Very high: >or= 499 mg/dL Literature References: 1. Expert Panel on Integrated Guidelines for Cardiovascular Health and Risk Reduction in Children and Adolescents. Pediatrics 2011;128:S213 2. NCEP Expert Panel. Circulation 2004;110:227 Current Interpretive Data was last revised on 2018. Testing performed by: [address] [address] HDL 38(L) >=40 mg/dL ZAYRA Comment: Interpretive Data Ages < or = 19 years Acceptable: >45 mg/dL Borderline low: 40-45 mg/dL Low: <40 mg/dL Ages > or = 20 years Desirable: >or= 60 mg/dL Low: <40 mg/dL Literature References: 1. Expert Panel on Integrated Guidelines for Cardiovascular Health and Risk Reduction in Children and Adolescents. Pediatrics 2011;128:S213 2. NCEP Expert Panel. Circulation 2004;110:227 Current Interpretive Data was last revised on 2018. Testing performed by: [address] [address] LDL, calculated 61 <=129 mg/dL ZAYRA Comment: Interpretive Data Ages < or = 19 years Acceptable: <110 mg/dL Borderline high: 110-129 mg/dL High: >or= 130 mg/dL Ages > or = 20 years Optimal: <100 mg/dL Near optimal: 100-129 mg/dL Borderline high: 130-159 mg/dL High: >160 mg/dL Calculated using the Loi LDL-C estimating equation. This equation was implemented on 2024. Prior to this date LDL-C was estimated using the Friedewald equation. Literature References: 1. Expert Panel on Integrated Guidelines for Cardiovascular Health and Risk Reduction in Children and Adolescents. Pediatrics 2011;128:S213 2. NCEP Expert Panel. Circulation 2004;110:227 3. Loi Gutierrez et al. ILIA Cardiol. 2020 March 30;5(5):540-548. doi: 10.1001/jamacardio.2020.0013 Current Interpretive Data was last revised on 2024. Testing performed by: [address] [address] Non-HDL Cholesterol 99 mg/dL ZAYRA Comment: Interpretive Data Ages < or = 19 years Acceptable: <120 mg/dL Borderline high: 120-144 mg/dL High: >145 mg/dL Ages > or = 20 years When triglycerides are >200 mg/dL, Non-HDL cholesterol is a secondary target of therapy with treatment goals that are 30 mg/dL greater than the LDL cholesterol target. Literature References: 1. Expert Panel on Integrated Guidelines for Cardiovascular Health and Risk Reduction in Children and Adolescents. Pediatrics 2011;128:S213 2. NCEP Expert Panel. Circulation 2004;110:227 Current Interpretive Data was last revised on 2018. Testing performed by: [address] [address] Chol/HDL ratio 4 ZAYRA Comment:Testing performed by : [address] [address] Blood 08/02/2024 12:5 2 PM CDT 08/02/2024 1:46 PM CDT us Wilfredo Moreno MD LAB BLOOD ORDERABL ES Final Result ZAY[facility] [address] [facility] Department [place] [address] * Serum Hepatitis C ab (01/23/2016 8:43 AM EARTH MOVER) HCV ab Negative NEG HISTORICAL RESULTS Serum 01/23/2016 8:43 AM EARTH MOVER Narrative HISTORICAL RESULTS - 01/24/2016 3:26 AM EARTH MOVER Interpretive Data If confirmation is required, call Laboratory Customer Service to request sample to be sent to [facility] for Hepatitis C Virus (HCV) RNA Detection and Quantitation by Real-Time Reverse Radar Air Traffic Controller-PCR (RT-PCR). Current interpretive data was last revised on 2012 us Neymar Mack MD LAB BLOOD ORDERABLES Final Res ult HISTORICAL RESULTS from Last 3 Months or Most Recently Relevant to Health Maintenance Insurance MEDICARE [employer] [facility] MEDICARE ADVANTAGE [place], [place] [id number] UHC MEDICARE ADVANTAGE Advance Directives For more information, please contact: [phone] Documents on File Type Date Recorded Patient Rfid Analyst Expl anation ADVANCE DIRECTIVE 02/19/2018 12:00 AM OKSANA Crowder OF [employer] PICKUP/RECEIVING ASSOCIATE FINANCIAL/MEDICAL Care Teams Watch Mechanic Relationship Specialty Start Date End Date Wilfredo Moreno MD PCP - General 01/06/18 Blake Brooks MD PhD [address] [place] [address] [address] [place], [place] [address] Medical Oncologist/Propellant Charge Zone Assembler Medical Oncology 01/15/21 Costa Barba MD [address] [facility] [address] [place], [place] [address] Surgeon Neurosurgery 07/17/21 Brittany Escobar MD [address] [place] [address] [address] [place], [place] [id number] Radiation Oncologist Radiation Oncology 07/06/24 Cody Devi MD [address] [place] [address] [address] [place], [place] [id number] Consulting Physician General Surgery 06/13/25
--- OUTSIDE RECORDS SUMMARY | 2025-11-02 07:27 | XMS_ITS ---
Author Organization [facility] Address [address] [place] [address] Phone Care Team Providers Care Landscape Crew Leader Name Role Phone Wilfredo Moreno MD Primary Care Prov ider Blake Brooks MD PhD Unavailable Costa Barba MD Unavailable [phone] Brittany Escobar MD Unavailable [phone] Cody Devi MD Unavailable [phone] Active Problems Problem Noted Date Diagnosed Date [...] 08/17/2015 Tobacco use disorder 08/12/2015 Polycythemia 09/19/2014 Current Treatment and Therapy Plans No current plan information found. Other Current Plans IV Maintenance Therapy Plan* Plan Start Date:11/02/2024 Plan Provider:Blake Brooks MD PhD Linked Problems Encounter for management of implanted device Treatment Medications No medications scheduled. Past Treatment and Therapy Plans Oncology Chemotherapy Treatment Plan Name Start Date Discontinue Date Treatment Medications Discontinue Reason Plan Provider Cycles Nivolumab 240 mg 14 Day Cycles 8 06/03/2019 nivolumab (OPDIVO)nivolu mab (OPDIVO) in 50 mL IVPB Protocol Amendment/David Moura MD 19 of 24 cycles started Oncology Treatment (2) Plan Name Start Date Discontinue Date Treatment Medications Discontinue Reason Plan Provider Cycles Nivolumab 480 mg 28 Day Cycles 9 02/03/2023 nivolumab (OPDIVO)nivolu mab (OPDIVO) in 50 mL IVPB Therapy Complete Blake Brooks MD PhD 35 of 36 cycles completed PACLItaxel / CARBOplatin - Lung consolodation 05/31/2018 09/06/2018 CARBOplatin (PARAPLATIN) IVPB in 250 mLPACLItaxel (TAXOL) 100 mlPACLItaxel (TAXOL) IVPB in 500 mL Therapy Complete David Kenney MD 2 of 2 cycles started Specialty Infusion Treatment Plan Name Start Date Discontinue Date Treatment Medications Discontinue Reason Plan Provider ALTEPLASE (CATHFLO ACTIVASE) - ORDERS FOR OCCLUDED CATHETERS 05/02/2020 02/03/2023 No medications scheduled. Therapy Complete David Kenney MD Radiation Treatments * Course C2 L AX SCV 201902/02/2020 - 03/15/2020 Treatment Period Energy Fraction Dose Fractions Total Dose Plans Planned Left Axilla 02/02/2020 - 03/15/2020 200 30 / 6,000 Left SCV 02/02/2020 - 03/15/2020 180 30 / 5,400 Reference Points Delivered PTV AXILLA 02/02/2020 - 03/15/2020 6,000 PTV SCV 02/02/2020 - 03/15/2020 5,400 Lifetime Dose Tracking * Chemical Lifetime Dose Automatic Entry Manual Entr y Fluoro Time 0.212 minutes 0.212 minutes 0 minutes Air kerma at the reference point (Ka,r) 1.35 mGy 1 .35 mGy 0 mGy
--- OUTSIDE RECORDS SUMMARY | 2025-11-02 07:27 | XMS_ITS | Clinical Summary ---
Author Organization [facility] Address [address] [place] [address] Care Team Providers Care Commercial Real Estate Lender Name Role Phone Wilfredo Moreno MD Primary Care Provider [phone] David Kenney MD Unavailable [phone] Gerson Iyer MD Unavailable Unavailabl e Allergies No known active allergies Medications fenofibrate 160 MG tablet 12/14/2017Fenofibrate, po solid 160 mg TabletPOdailyCurrent Medication 12/14/19 18 Active Calcium Carb-Cholecal ciferol (CALCIUM CARBONATE-VIT ADAMSON D3) 600-400 MG-UNIT Tab Active glimepiride 4 MG tablet 03/11/20 20 Active gabapentin 300 MG capsule Take 1 capsule (300 mg total) by mouth 2 (two) times daily. 01/17/20 20 Active metFORMIN 500 MG tablet Take 2 tablets (1,000 mg total) by mouth 2 (two) times daily. 01/07/20 21 Active JANUVIA 100 MG tablet Take 1 tablet (100 mg total) by mouth daily. 01/16/20 21 Active dulaglutide (TRULICITY) 0.75 MG/0.5ML injection Inject 0.75 mg into the skin once a week. Active LORazepam (ATIVAN) 1 MG tablet Take 1 tablet (1 mg total) by mouth 2 (two) times daily as needed. FOR ANXIETY 11/28/20 24 Active escitalopram (LEXAPRO) 10 MG tablet Take 1 tablet (10 mg total) by mouth daily. Ac tive pioglitazone (ACTOS) 15 MG tablet Take 1 tablet (15 mg total) by mouth daily. Ac tive Active Problems Problem Noted Date Diagnosed Date Visual disturbance 12/15/2018 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 12/08/2018 S/P craniotomy 12/08/2018 Brain tumor 12/08/2018 Brain metastasis 11/15/2018 Immunizations Immunization Administration Dates Next Due Dtap (Generic) 10/10/2020 Influenza (Generic) 10/13/2014 Influenza Adult (Generic) 09/16/2022,,09/25/2020,09/05/20 19,10/05/2018 Pneumococcal (Generic) 10/23/2020,10/10/2020 Zoster (Zostavax) [address] Unt/0.65Ml 10/20/2020, Family History Medical History Relation Comments Cancer Brother 1 KIDNEY Heart Disease Brother 2 [place] Cancer Father PROSTATE-COLON Diabetes Maternal Grandfather Cancer Mother BREAST Diabetes Mother TYPE 2 Cancer Sister 1 MELANOMA Relation Status Comments Brother 1 (Age 54) Brother 2 (Age 51) [place] Father (Age 67) Maternal Grandfather Mother (Age 71) Sister 1 Sister 2 Alive Social History Tobacco Use Types Packs/Day Years Used Date Smoking Tobacco: Former Cigarettes 2 42 0 02/12/1976 - 02/11/2018 Smokeless Tobacco: Former Chew Tobacco Cessation:Counseling Given: Not Answered Alcohol Use Standard Drinks/Week Comments No 0 (1 standard drink = 0.6 oz pur e alcohol) PHQ-2 Answer Date Recorded Patient Health Questionnaire-2 Score 0 07/07/2024 Sex and Gender Information Value Date Recorded Sex Assigned at Male 01/05/2025 6:42 AM HEAD WAITRESS Legal Sex Male 5:41 PM CDT Gender Identity Not on file Sexual Orientation Not on file Last Filed Vital Signs Vital Sign Reading Time Taken Comments Blood Pressure 135/72 07/27/2025 8:23 AM CDT Pulse 83 07/27/2025 8:23 AM CDT Temperature 36.7 C (98.1 F) 07/27/2025 8:23 AM CDT Respiratory Rate 18 07/27/2025 8:23 AM CDT Oxygen Saturation 99% 07/27/2025 8:23 AM CDT Inhaled Oxygen Concentration - - Weight 85.7 kg (189 lb) 07/27/2025 8:23 AM CDT Height 180.3 cm (5' 11) 07/27/2025 8:23 AM CDT Body Mass Index 26.36 07/27/2025 8:23 AM CDT Plan of Treatment Upcoming Encounters Date Type Department Care Team (Late st Contact Info) Description 01/25/2026 11:20 AM HEAD WAITRESS Office Visit [facility] - [facility] [address], [address] [place] [id number] Costa Barba MD [address] [place] [address] Health Maintenance Due Date Last Done Comments Colorectal Cancer Screening Colonoscopy (10 Years) 1960 Hepatitis C 1978 Pneumococcal Vaccine: 50+ Years (1 of 1 - PCV) 2010 Zoster Vaccines (2 of 3) 12/15/2020 10/20/2020, 09/30 PHQ-2 (Physician [place]) 11/30/2024 07/07/2024 COVID-19 Vaccine (2024- season) 2025 11/18/2022, 12/02/2021, 02/15/2021, Additional history exists Influenza Adult (#1) 2025 09/16/2022, 09/24/2021, 09/25/2020, Additional history exists DTaP, Tdap and Td Vaccines (2 - Tdap) 10/10/2030 10/10/2020 RSV Immunization or 60+ Years (1 - 1-dose 75+ series) 2035 AAA SCREENING Completed 04/13/2025, 03/30, 10/25/2024, Additional history exists Hepatitis A Vaccines Aged Out No long er eligible based on patient's age to complete this topic Meningococcal B Vaccine Aged Out No l onger eligible based on patient's age to complete this topic Meningococcal Vaccine Aged Out No renu roland eligible based on patient's age to complete this topic RSV Immunizations Under 20 Months Aged Out No longer eligible based on patient's age to complete this topic Medical Devices Implanted Type Area Mandarin Chinese Teacher Device Identifier Shelf Expiration Date Model / Serial / Lot Port A Cath-Left Subclavian Duramatrix Onlay Plus 3x3 - [id number] Implanted:Qty: 1 on 12/08/2018 by Gerson Iyer MD at [facility] N/A: Brain [employer] - DIV [employer] 02/28/2020 [id number] / / [id number] Clamp Tube 11mm Crnfx 2 Cran Flap Titan Scr; Safe; - [id number] Implanted:Qty: 2 on 12/08/2018 by Gerson Iyer MD at [facility] N/A: Brain [employer] [place] - DIV B [employer] 04/29/2022 [id number] / / [id number] Clamp Tube 11mm Crnfx 2 Cran Flap Titan Scr; Safe; - [id number] Implanted:Qty: 1 on 12/08/2018 by Gerson Iyer MD at [facility] N/A: Brain [employer] [place] - DIV B [employer] 08/29/2022 [id number] / / [id number] Clamp Tube 11mm Crnfx 2 Cran Flap Titan Scr; Safe; - [id number] Implanted:Qty: 1 on 12/10/2018 by Gerson Iyer MD at [facility] [employer] [place] - D IV B [employer] 08/29/2022 [id number] / / [id number] Description:SKULL Clamp Tube 11mm Crnfx 2 Cran Flap Titan Scr; Safe; - [id number] Implanted:Qty: 1 on 12/10/2018 by Gerson Iyer MD at [facility] [employer] [place] - D IV B [employer] 08/29/2022 [id number] / / [id number] Description:SKULL Clamp Tube 11mm Crnfx 2 Cran Flap Titan Scr; Safe; - [id number] Implanted:Qty: 1 on 12/10/2018 by Gerson Iyer MD at [facility] [employer] [place] - D IV B [employer] 04/29/2022 [id number] / / [id number] Description:SKULL Duramatrix Onlay Plus 3x3 - [id number] Implanted:Qty: 1 on 12/10/2018 by Gerson Iyer MD at [facility] Right: Brain [employer] CRANIOMAX[employer] - DIV [employer] 02/28/2020 [id number] / / [id number] 2 Explanted Type Area Mandarin Chinese Teacher Device Identifier Shelf Expiration Date Model / Serial / Lot Pins Mccloud Skull Adult Disposable - [id number] Explanted:Qty: 3 on 12/08/2018 at [facility] [employer] SARAH [id number] / / Pins Mccloud Skull Adult Disposable - [id number] Explanted:Qty: 3 on 12/10/2018 by Gerson Iyer MD at [facility] N/A: Cranial [id number] [id number] / / Procedures Procedure Name Priority Date/Time Associated Diagnosis Comments CT CHEST+ABD W CON Routine 09/18/2020 10 :21 AM CDT Non-small cell lung cancer from Last 3 Months or Most Recently Relevant to Health Maintenance Results * CT CHEST+ABD W CON (09/18/2020 10:21 AM CDT) Anatomical Region Laterality Modality Chest, Abdomen Computed Tomogra phy 09/19/2020 4:48 PM CDT Impressions 09/19/2020 5:02 PM CDT =====IMPRESSION:===== 1. Stable to a few millimeter decrease in size of the right posterior upper lobe pleural-based opacity with central traction bronchiectasis. 2. New geographic groundglass opacities anterior right middle lobe compatible with a nonspecific pneumonitis. Attention on follow-up. 3. New suspected radiation related left anterolateral subpleural fibrosis. 4. Stable diffuse hepatic steatosis and hepatomegaly without a focal hepatic lesion. 5. No acute abdominal process or evidence of metastatic involvement. 6. Other nonemergent, incidental, stable and potential chronic findings as discussed in the report body above. Narrative 09/19/2020 5:02 PM CDT EXAMINATION: CT Chest and Abdomen with contrast EXAM DATE/TIME: 09/18/2020 10:04 AM REASON FOR EXAM: 60-year-old male. Lung cancer follow-up. Restaging. COMPARISON: CT 05/18/2019 TECHNIQUE: Computed tomography of the chest and abdomen was obtained after administration of intravenous contrast, 100 mL Isovue-370 according to routine protocol. A dose lowering technique was used for this procedure, which may include, but is not limited to, dose reduction technique, automated exposure control, iterative reconstruction, ALARA (As Low As Reasonably Achievable), or Image Gently techniques. FINDINGS: CT CHEST: Left chest implanted central venous chest port in place. Catheter tip is in the distal SVC. Cardiac size is normal. Early coronary artery disease. No pericardial or pleural effusion. Aorta and the pulmonary arteries are within normal limits. Calcified prevascular lymph nodes. No pathologic adenopathy seen by CT size criteria. Stable right upper lobe volume loss. There is a right posterior apical upper lobe pleural-based opacity measuring slightly smaller 2.4 x 3.8 cm compared to 2.8 x 4.1 cm on the 05/18/2019 study. There are thickened dilated airways extending the was the right hilum from this region. There is a anterior posteriorly oriented linear density in the medial right upper lobe suggestive of radiation related changes. There are few geographic groundglass opacities in the right middle lobe new from the prior study. There is a left upper lobe anterolateral subpleural densities suggestive of radiation related changes also new from the prior study. Focus of linear subsegmental atelectasis posterior in the left upper lobe lingula is subcentimeter calcified granuloma redemonstrated. No other new suspicious nodule mass opacity seen. Large areas are clear centrally. There is a mid and lower thoracic spine degenerative prominent ventral endplate spurring. No concerning focal lytic or blastic lesion seen. CT ABDOMEN: Stable diffuse hepatic steatosis and hepatomegaly with focal fat sparing adjacent to the gallbladder fossa. No focal hepatic metastatic lesion. Stable splenic calcific granulomas. The pancreas adrenals and gallbladder are unremarkable. Normal symmetric nephrograms. No focal lesions or hydronephrosis. Circumferential mural thickening of the esophagus, nonspecific. Supraumbilical widemouthed anterior abdominal wall hernia is containing loops of nonobstructed bowel. Because bowel is unremarkable. There is no upper abdominal adenopathy or ascites. 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 No concerning lytic or blastic skeletal lesion seen. Procedure Note Violet Rao MD - 09/19/2020 EXAMINATION: CT Chest and Abdomen with contrast EXAM DATE/TIME: 09/18/2020 10:04 AM REASON FOR EXAM: 60-year-old male. Lung cancer follow-up. Restaging. COMPARISON: CT 05/18/2019 TECHNIQUE: Computed tomography of the chest and abdomen was obtainedafter administration of intravenous contrast, 100 mL Isovue-370 according to routine protocol. A dose lowering technique was used for this procedure, which may include, but is not limited to, dose reduction technique, automated exposure control, iterative reconstruction, ALARA (As Low As Reasonably Achievable), or Image Gently techniques. FINDINGS: CT CHEST: Left chest implanted central venous chest port in place.Catheter tip is in the distal SVC. Cardiac size is normal. Early coronary artery disease. No pericardial or pleural effusion. Aorta and the pulmonary arteries are within normal limits. Calcified prevascular lymph nodes. No pathologic adenopathy seen by CTsize criteria. Stable right upper lobe volume loss. There is a right posterior apical upper lobe pleural-based opacity measuring slightly smaller 2.4 x 3.8 cm compared to 2.8 x 4.1 cm on the 05/18/2019 study. There are thickened dilated airways extending the was the right hilum from this region.There is a anterior posteriorly oriented linear density in the medial rightupper lobe suggestive of radiation related changes. There are few geographic groundglass opacities in the right middle lobenew from the prior study. There is a left upper lobe anterolateralsubpleural densities suggestive of radiation related changes also new from theprior study. Focus of linear subsegmental atelectasis posterior in the leftupper lobe lingula is subcentimeter calcified granuloma redemonstrated. No other new suspicious nodule mass opacity seen. Large areas are clear centrally. There is a mid and lower thoracic spine degenerative prominent ventral endplate spurring. No concerning focal lytic or blastic lesion seen. CT ABDOMEN: Stable diffuse hepatic steatosis and hepatomegaly with focal fat sparing adjacent to the gallbladder fossa. No focal hepaticmetastatic lesion. Stable splenic calcific granulomas. The pancreas adrenals and gallbladder are unremarkable. Normal symmetric nephrograms. No focal lesions or hydronephrosis. Circumferential mural thickening of the esophagus, nonspecific. Supraumbilical widemouthed anterior abdominal wall hernia is containing loops of nonobstructed bowel. Because bowel is unremarkable. There is no upper abdominal adenopathy or ascites. 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 No concerning lytic or blastic skeletal lesion seen. =====IMPRESSION:===== 1. Stable to a few millimeter decrease in size of the right posteriorupper lobe pleural-based opacity with central traction bronchiectasis. 2. New geographic groundglass opacities anterior right middle lobe compatible with a nonspecific pneumonitis. Attention on follow-up. 3. New suspected radiation related left anterolateral subpleuralfibrosis. 4. Stable diffuse hepatic steatosis and hepatomegaly without a focal hepatic lesion. 5. No acute abdominal process or evidence of metastatic involvement. 6. Other nonemergent, incidental, stable and potential chronic findingsas discussed in the report body above. David Kenney MD CT Final Resul t from Last 3 Months or Most Recently Relevant to Health Maintenance Additional Health Concerns Infection Onset Date Last Indicated MRSA Comment:MRSA POS 12/03/2018 12/09/2018 12/09/2018 Insurance MEDICARE Advance Directives * Full Code (Latest Code Status on File) Date Activated Date Inactivated Comments 12/10/2018 4:10 PM 12/13/2018 2:33 PM * Full Code Date Activated Date Inactivated Comments 12/08/2018 5:56 PM 12/10/2018 4:10 PM Care Teams Commercial Real Estate Lender Relationship Specialty Start Date End Date Wilfredo Moreno MD [address] [place] [id number] PCP - General FAMILY PRACTICE 02/18/18 David Kenney MD [address] [place] [id number] ONCOLOGY 12/02/18 Gerson Iyer MD [address] [place] [id number] Surgeon NEUROLOGICAL SURGERY 12/02/18
--- OUTSIDE RECORDS SUMMARY | 2025-11-02 07:27 | XMS_ITS | Encounter Summary ---
Author Organization [facility] Address [facility] [place] [address] Care Team Providers Care Airplane Pilot Name Role Phone Wilfredo Moreno MD Primary Care Provider [phone] David Kenney MD Unavailable [phone] Gerson Iyer MD Unavailable Unavailabl e Reason for Visit * Reason Onset Date Comments Preprocedure Call 07/15/2018 Encounter Details Date Type Department Care Team (Late st Contact Info) Description 07/15/2018 Pre-Procedure Call [facility] [place] [address] Violet Rao MD [address] [place] [id number] Preprocedure Call Social History Tobacco Use Types Packs/Day Years Used Date Smoking Tobacco: Former Smokeless Tobacco: Former Chew Alcohol Use Standard Drinks/Week Comments No 0 (1 standard drink = 0.6 oz pur e alcohol) Sex and Gender Information Value Date Recorded Sex Assigned at Male 01/05/2025 6:42 AM HAIR SAMPLE MATCHER Legal Sex Male 5:41 PM CDT Gender Identity Not on file Sexual Orientation Not on file documented as of this encounter Last Filed Vital Signs Vital Sign Reading Time Taken Comments Blood Pressure - - Pulse - - Temperature - - Respiratory Rate - - Oxygen Saturation - - Inhaled Oxygen Concentration - - Weight 83.9 kg (185 lb) 07/15/2018 12:00 AM CDT Height 180.3 cm (5' 11) 07/15/2018 12:00 AM CDT Body Mass Index 25.8 07/15/2018 12:00 AM CDT documented in this encounter Plan of Treatment Upcoming Encounters Date Type Department Care Team (Late st Contact Info) Description 01/25/2026 11:20 AM HAIR SAMPLE MATCHER Office Visit [facility] - [facility] [address] [facility], [address] [place] [address] oCsta Barba MD [address] [place] [address] documented as of this encounter Visit Diagnoses Not on filedocumented in this encounter Additional Health Concerns Infection Onset Date Last Indicated Resolved Time MRSA Comment:MRSA POS 12/03/2018 12/09/2018 12/09/2018 C. difficile Comment:C-DIFF POS oct 2018 12/09/2018 12/09/2018 12/09/2018 1 2:44 PM HAIR SAMPLE MATCHER documented as of this encounter Care Teams Airplane Pilot Relationship Specialty Start Date End Date Wilfredo Moreno MD [address] [place] [id number] PCP - General FAMILY PRACTICE 02/18/18 David Kenney MD [address] [place] [id number] ONCOLOGY 12/02/18 Gerson Iyer MD [address] [place] [id number] Surgeon NEUROLOGICAL SURGERY 12/02/18 documented as of this encounter
--- NOTE | 2025-11-02 07:46 | ECHO_ITS ---
Patient Info Name: Rey Hess Age: 65 years : 1960 Gender: Male Ht: 73 in Wt: 185 lbs BSA: 2.08 m2 HR: 84 bpm BP: 140 / 72 mmHg Technical Quality: Poor Exam Date: 11/02/2025 8:07 AM Patient Status: O Admit Date: 11/02/2025 Exam Type: CA echo doppler color flow Complete two-dimensional, color flow and Doppler transthoracic echocardiogram is performed. County Director: Parker Rios Attending Provider: Alem Reynolds Reason for Poor Study: patient body habitus Summary 1. Complete two-dimensional, color flow and Doppler transthoracic echocardiogram is performed. 2. Technically suboptimal study due to poor sonographic images. 3. Left ventricular chamber dimension is normal. 4. Left ventricular systolic function is normal, estimated at 60-65. 5. The left ventricular diastolic function is normal. 6. E/e' 7 is not elevated. 7. Left atrial chamber dimension is mildly enlarged. Left Ventricle E/e' 7 is not elevated. Left ventricular chamber dimension is normal. Left ventricular systolic function is normal, estimated at 60-65. The left ventricular diastolic function is normal. Technically suboptimal study due to poor sonographic images. Right Ventricle Right ventricular chamber dimension is normal. Right ventricular systolic function is normal and with normal TAPSE 2.2 cm. Left Atria Left atrial chamber dimension is mildly enlarged. Right Atria Right atrial chamber dimension is normal. Aortic Valve The aortic valve is trileaflet. There is no aortic valve stenosis. There is no aortic valve regurgitation. Pulmonic Valve There is no pulmonic regurgitation. Mitral Valve There is no mitral valve stenosis. There is no mitral valve regurgitation. Tricuspid Valve There is no tricuspid valve regurgitation. Pericardium/Pleural There is no pericardial effusion. Inferior Vena Cava Normal inferior vena cava with >50% collapse upon inspiration consistent with normal right atrial pressure, 5 mmHg. Aorta The aortic root size at the sinus of Valsalva is normal. Left Ventricular Outflow Tract Name Value Normal LVOT 2D LVOT Diameter 2.6 cm LVOT Doppler LVOT Peak Velocity 90 cm/s LVOT Peak Gradient 3 mmHg Pulmonic Valve Name Value Normal PV 2D RVOT Diameter (2D) 3.0 cm 1.7-2.7 RVOT Doppler RVOT Peak Velocity 79 cm/s RVOT Peak Gradient 3 mmHg PV Doppler PV Peak Velocity 87 cm/s PV Peak Gradient 3 mmHg PV Area (Cont Eq Erickson) 6.5 cm2 PV Area Index (Cont Eq Erickson) 3.13 cm2/m2 PV Regurgitation Doppler TX Peak End Diastolic Velocity 77 cm/s Mitral Valve Name Value Normal MV Diastolic Function MV E Peak Velocity 65 cm/s MV A Peak Velocity 72 cm/s MV E/A 0.9 MV Decel Time (PW) 138 ms MV Annular TDI MV E/e' (Septal) 8.1 MV E/e' (Lateral) 8.7 MV E/e' (Average) 8.4 Tricuspid Valve Name Value Normal Estimated PAP/RSVP RA Pressure 5 mmHg <=5 TV Annular TDI TV Lateral Lauren s' Velocity 14.4 cm/s >=9.5 Aorta Name Value Normal Ascending Aorta Ao Root Diameter (MM) 2.6 cm Ao Root Diam Index (MM) 1.2 cm/m2 Aortic Valve Name Value Normal AV Regurgitation 2D LVOT Area 5.2 cm2 Ventricles Name Value Normal LV Dimensions 2D/MM IVS Diastolic Thickness (2D) 0.8 cm 0.6-1.0 LVID Diastole (2D) 4.4 cm 4.2-5.8 LVIW Diastolic Thickness (2D) 0.7 cm 0.6-1.0 LVID Systole (2D) 2.3 cm 2.5-4.0 LVOT Diameter 2.6 cm LV Mass (2D Cubed) 98.35 g 88.00-224.00 LV Mass Index (2D Cubed) 47 g/m2 49-115 Relative Wall Thickness (2D) 0.33 <=0.42 LV Fractional Shortening/Ejection Fraction 2D/MM LV Fractional Shortening (2D) 70 % 25-43 LV EF (2D Teichholz) 78 % LV Diastolic Volume (4C MOD) 109 ml LV EF (4C MOD) 81 % LV Diastolic Volume (2C MOD) 57 ml LV EF (2C MOD) 18 % LV Diastolic Volume (BP MOD) 85 ml 62-150 LV Diastolic Volume Index (BP MOD) 41 ml/m2 34-74 LV Systolic Volume (BP MOD) 38 ml 21-61 LV Systolic Volume Index (BP MOD) 18 ml/m2 11-31 LV EF (BP MOD) 56 % 52-72 LV Diastolic Length (4C) 8.5 cm LV Systolic Length (4C) 5.9 cm LV Stroke Volume (4C MOD) 88 ml Atria Name Value Normal LA Dimensions LA Dimension (MM) 4.6 cm 3.0-4.0 LA Volume (4C A-L) 7 ml LA Volume (BP A-L) 14 ml Report Signatures
== END 2025-11-02 07:23 | disposition home or self-care (01) ==
PROVIDERS: PCP Family Medicine; Visit Provider Family Medicine
DX: R01.1 Cardiac murmur, unspecified (principal); I51.7 Cardiomegaly
CPT/HCPCS: 93306